=== PATIENT | female | born 1980 | race Caucasian/White ===

== ENCOUNTER → 2016-06-28 | Outpatient (CLI) | payer BC ==
[~2016-06-28] MED LIST: CLR10 PO; LTMOPS OP; PRENTAB26 PO; RANI150T3 PO; VALA500T60 PO
[2016-06-28 18:11] LABS: URINE APPEARANCE CLEAR (CLEAR); URINE BILIRUBIN NEG (NEG); URINE COLOR YELLOW; URINE NITRITE NEG (NEG); URINE SPECIFIC GRAVITY 1.007 (1.000-1.030); UROBILINOGEN NEG (NEG)
[2016-06-28 18:18] LABS: MANUAL MICROSCOPIC REQUIRED? NO; REVIEW REQ? NO
== END | disposition home or self-care (01) ==
LOC: C.LABSPEC 17:47
PROVIDERS: ATTEND Obstetrics & Gynecology
DX: O09.519 Supervision of elderly primigravida, unspecified trimester (principal); Z3A.00 Weeks of gestation of pregnancy not specified

== ENCOUNTER → 2016-07-05 | Outpatient (CLI) | payer BC | LOC: C.PAPS 09:07 | PROVIDERS: ATTEND Obstetrics & Gynecology | DX: O09.519 Supervision of elderly primigravida, unspecified trimester (principal) ==

== ENCOUNTER → 2016-07-05 | Outpatient (CLI) | payer BC ==
[2016-07-09 04:24] LABS: CHLAMYDIA TRACH RNA*** NOT DETECTED (NOT DETECTED); GC (NEIS GONORRHOEAE)RNA** NOT DETECTED (NOT DETECTED)
== END | disposition home or self-care (01) ==
LOC: C.LABSPEC 17:41
PROVIDERS: ATTEND Obstetrics & Gynecology
DX: O09.519 Supervision of elderly primigravida, unspecified trimester (principal)

== ENCOUNTER → 2016-07-05 | Outpatient (CLI) | payer BC ==
[2016-07-05 16:40] LABS: BASO % 0.3 %; BASO ABS # 0.02 K/uL (0-0.2); COMPLETE YES; EOS % 0.9 %; HEMATOCRIT 40.4 % (37-47); IG% 0.1 %; LYMPH % 26.1 %; LYMPH ABS # 2.05 K/uL (1.2-3.4); MEAN CELL VOLUME 94.6 fL (80-100); MEAN CORPUSCULAR HEMOGLOBIN 31.9 pg (25-34); MEAN CORPUSCULAR HGB CONC 33.7 g/dl (32-36); MEAN PLATELET VOLUME 9.2 fL (7.4-10.4); NEUT % 64.6 %; PLATELET COUNT 274 K/uL (130-400); RED BLOOD COUNT 4.27 M/uL (4.2-5.4); WHITE BLOOD COUNT 7.85 K/uL (4.8-10.8)
== END | disposition home or self-care (01) ==
LOC: C.LAB1850 15:05
PROVIDERS: ATTEND Obstetrics & Gynecology
DX: O09.519 Supervision of elderly primigravida, unspecified trimester (principal)

== ENCOUNTER → 2016-08-23 | Outpatient (CLI) | payer BC ==
[2016-08-23 17:10] LABS: GTGD 50 Grams
[2016-08-26 14:24] LABS: AFPTS GESTATIONAL AGE 15.3 WEEKS; AFPTS INSULIN DEP DIABETIC? NO; AFPTS MATERNAL WT 145 LBS; ALPHA-FETOPROTEIN RACE CAUCASIAN=W; HISTORY OF NTD NO; REPEAT SAMPLE? NO
== END | disposition home or self-care (01) ==
LOC: C.LAB1850 14:29
PROVIDERS: ATTEND Obstetrics & Gynecology
DX: O09.512 Supervision of elderly primigravida, second trimester (principal); Z3A.00 Weeks of gestation of pregnancy not specified

== ENCOUNTER → 2016-11-15 | Outpatient (CLI) | payer BC ==
[2016-11-15 15:52] LABS: HEMATOCRIT 34.2 % (37-47)
[2016-11-15 18:04] LABS: MANUAL MICROSCOPIC REQUIRED? NO; REVIEW REQ? NO; URINE APPEARANCE CLEAR (CLEAR); URINE BILIRUBIN NEG (NEG); URINE COLOR YELLOW; URINE EPITHELIAL CELL AUTO 20-30 /lpf (0-5); URINE NITRITE NEG (NEG); URINE SPECIFIC GRAVITY 1.017 (1.000-1.030); UROBILINOGEN NEG (NEG)
[2016-11-15 23:07] LABS: GTGD 50 Grams
== END | disposition home or self-care (01) ==
LOC: C.LAB1850 13:53
PROVIDERS: ATTEND Obstetrics & Gynecology
DX: O09.512 Supervision of elderly primigravida, second trimester (principal)

== ENCOUNTER 2016-11-28 21:02 | Outpatient (CLI) | payer BC ==
[~2016-11-28] VITALS: Ht 157.5 cm; Wt 75.5 kg
[2016-11-28 22:07] VITALS: Ht 157.5 cm; Wt 75.5 kg
[2016-11-28] MEDS ORDERED: CLR10 PO (22:10)
[2016-11-28] MEDS ORDERED: RANI150T3 PO (22:10)
[2016-11-28] MEDS ORDERED: PRENTAB26 PO (22:10)
[2016-11-28] MEDS ORDERED: LTMOPS OP (22:11)
[2016-11-28] MEDS ORDERED: VALA500T60 PO (22:12)
== END 2016-11-28 22:42 | disposition home or self-care (01) ==
LOC: C.OPB 21:02 → C.LD 21:02 → C.OPB 22:42
PROVIDERS: ATTEND Obstetrics & Gynecology
DX: O46.90 Antepartum hemorrhage, unspecified, unspecified trimester (principal); Z3A.00 Weeks of gestation of pregnancy not specified

== ENCOUNTER → 2017-01-17 | Outpatient (CLI) | payer BC | END | disposition home or self-care (01) | LOC: C.LABSPEC 13:53 | PROVIDERS: ATTEND Obstetrics & Gynecology | DX: O09.513 Supervision of elderly primigravida, third trimester (principal); Z3A.00 Weeks of gestation of pregnancy not specified ==

== ENCOUNTER 2017-02-21 15:44 | Inpatient (IN) | payer BC ==
[~2017-02-21] VITALS: Ht 157.5 cm; Wt 83.6 kg
[2017-02-25] MEDS ORDERED: OMEG10007 PO (19:36)
[2017-02-26] MEDS ORDERED: LACTATED RINGER'S 1000ML 1,000 ML IV PRN (08:33)
[2017-02-26] MEDS ORDERED: LACTATED RINGER'S 1000ML 500 ML IV PRN ×3 (08:33→22:13)
[2017-02-26 08:40] VITALS: Ht 157.5 cm; Wt 83.6 kg
[2017-02-26] MEDS ORDERED: OXYTOCIN 30 UNITS/500ML NSS IV PRN (08:45)
[2017-02-26 09:07] LABS: HEMATOCRIT 37.6 % (37-47); HEMOGLOBIN 12.6 g/dL (12.0-16.0); MEAN CELL VOLUME 89.7 fL (80-100); MEAN CORPUSCULAR HEMOGLOBIN 30.1 pg (25-34); MEAN CORPUSCULAR HGB CONC 33.5 g/dl (32-36); MEAN PLATELET VOLUME 9.6 fL (7.4-10.4); PLATELET COUNT 229 K/uL (130-400); RED CELL DISTRIBUTION WIDTH SD 48.4 fL (36.4-46.3); WHITE BLOOD COUNT 11.79 K/uL (4.8-10.8)
[2017-02-26] MEDS: LACTATED RINGER'S 1000ML 1,000 ML IV SCH ×2 (13:35→18:36)
[2017-02-26] MEDS ORDERED: BUPIVACAINE 0.25% 30 ML VIAL ONE (13:47)
[2017-02-26] MEDS ORDERED: FENTANYL CITRATE INJ 50 MCG/1 ML 2 ML VIAL ONE (13:47)
[2017-02-26] MEDS ORDERED: EpHEDrine SULFATE INJ 50 MG/ML AMP ONE (13:47)
[2017-02-26] MEDS ORDERED: FENTANYL 2MCG/ML ROPIV 1.25MG/ML 100ML BAG EPI ONE (13:47)
[2017-02-26] MEDS ORDERED: NALOXONE HCL INJ 1 MG in SODIUM CHLORIDE 0.9% 1000ML 1,000 ML IV PRN ×2 (14:25→22:13)
[2017-02-26] MEDS ORDERED: NALOXONE HCL INJ 0.4 MG/1 ML VIAL/CARP IV PRN (14:30)
[2017-02-26] MEDS ORDERED: DiphenhydrAMINE HCL 50 MG/ML VIAL IV PRN ×2 (14:30→22:15)
[2017-02-26] MEDS ORDERED: NALBUPHINE HCL INJ 10 MG/ML 1ML AMP IV PRN ×2 (14:30→22:15)
[2017-02-26] MEDS ORDERED: FENTANYL 2MCG/ML ROPIV 1.25MG/ML 100ML BAG EPI PRN (14:30)
[2017-02-26] MEDS ORDERED: EpHEDrine SULFATE INJ 50 MG/ML AMP IV PRN ×3 (14:30→22:15)
--- NOTE | 2017-02-26 20:53 | HISTORY & PHYSICAL EXAMINATION ---
DATE OF ADMISSION: 02/26/2017 HISTORY OF PRESENT ILLNESS: Magda is 42 weeks and she has been induced today. She received a cervical Beavers last night with Dr. Webber. At that stage, she was approximately 2-3 cm. Pitocin was started. She did receive an epidural IV therapy as well for Pitocin. The membranes were ruptured. The patient did reach 5 cm; however, she stayed at 5 cm for at least 5 hours despite adequate contractions via external toco. At that stage, I did recommend section and patient agreed. heart rate was category 1; however, cervix not only was 5 cm but it was -2 station. HISTORY: She is AMA, had an uncomplicated . She states SHE IS ALLERGIC TO PENICILLIN, but she is not sure what that allergy is. PAST MEDICAL HISTORY: She is healthy. PAST SURGICAL HISTORY: No major surgeries. SOCIAL HISTORY: Nonsmoker, nondrinker. FAMILY HISTORY: Noncontributory. REVIEW OF SYSTEMS: Negative. PHYSICAL EXAMINATION: VITAL SIGNS: Stable. She is afebrile. CHEST: Clear. CARDIOVASCULAR: Normal rate and rhythm. No audible murmur. ABDOMEN: Gravid. heart tones category 1. Cervix 5 cm, -2 station. IMPRESSION AND PLAN: I think she meets criteria for failure to progress. I did offer patient we can continue to monitor and use Pitocin. We did discuss the risks of this as well. Discussed what is involved in a including risks including bleeding; infection; injury to bowel, bladder, ureter, or vessels; deep vein thrombosis; pulmonary embolus. Discussed risks of infection in active labor with ruptured membranes. Given the option of labor or section at this stage, patient opts for section and I agree. We will make arrangements for this.
[2017-02-26] MEDS ORDERED: OXYTOCIN INJ 10 UNITS/ML VIAL ONE ×3 (20:55→21:40)
[2017-02-26] MEDS ORDERED: LIDOCAINE/EPINEPHRINE 2% 1:200,000 20 ML SDV ONE (20:55)
[2017-02-26] MEDS ORDERED: MoRPHine SULFATE PF 1 MG/ML 10 ML AMP/VIAL ONE (20:56)
[2017-02-26] MEDS ORDERED: MEPERIDINE HCL 25 MG/ML CARP IV PRN (21:00)
[2017-02-26] MEDS ORDERED: HYDROmorphone INJ 1 MG/ML SYR IV PRN (21:00)
[2017-02-26] MEDS ORDERED: ONDANSETRON INJ 2 MG/ML 2 ML VIAL IV PRN (21:00)
[2017-02-26] MEDS ORDERED: ATROPINE SULFATE 0.1 MG/ML 5ML SYR IV PRN (21:00)
[2017-02-26] MEDS ORDERED: GENTAMICIN INJ 160 MG in DEXTROSE 5% 100ML 100 ML IV ONE (21:00)
[2017-02-26] MEDS ORDERED: CLINDAMYCIN IV 900 MG in DEXTROSE 5% 100ML 100 ML IV ONE (21:00)
[2017-02-26] MEDS ORDERED: LABETALOL HCL IV 5 MG/ML 20ML IV PRN (21:00)
[2017-02-26] MEDS ORDERED: FENTANYL CITRATE INJ 50 MCG/1 ML 2 ML VIAL IV PRN (21:00)
[2017-02-26] MEDS: CITRIC ACID/SODIUM CITRATE 15 ML UDC PO ONE ×2 (21:01→21:22)
[2017-02-26] MEDS ORDERED: LACTATED RINGER'S 1000ML 1,000 ML IV SCH (21:58)
[2017-02-26] MEDS ORDERED: SENNA 8.6 MG TAB PO PRN (22:00)
[2017-02-26] MEDS ORDERED: BENZOCAINE 20% AER SPR 82.5 GM CAN EXT PRN (22:00)
[2017-02-26] MEDS ORDERED: MAGNESIUM HYDROXIDE SUSP 30 ML UDC PO PRN (22:00)
[2017-02-26] MEDS ORDERED: LANOLIN OINT EXT PRN (22:00)
[2017-02-26] MEDS ORDERED: HYDROCORTISONE ACETATE 25 MG SUPP PR PRN (22:00)
[2017-02-26] MEDS ORDERED: PROMETHAZINE HCL INJ 25 MG in SODIUM CHLORIDE 0.9% 50ML 50 ML IV PRN (22:00)
[2017-02-26] MEDS ORDERED: SUPERCREAM 0.870 % 15GM JAR EXT PRN (22:00)
--- NOTE | 2017-02-26 22:03 | [facility] Post Operative Brief Note ---
Immediate Operative Summary Operative Date Feb 26, 2017. Pre-Operative Diagnosis Failure of descent Post-Operative Diagnosis Same Procedure(s) Performed Primary low transverse Caesarean Section for the delivery of a viable male child at 2128. Surgeon Customer Service Professional Surgeon(s) . Estimated Blood Loss 600 ml Findings normal anatomy Specimens Placenta - hold Cord Blood Cord Gases Drains Beavers Anesthesia Epidural Complication(s) None Disposition L&D
[2017-02-26] MEDS ORDERED: NALOXONE HCL INJ 0.08 MG in SYRINGE 1.8 ML IV PRN (22:13)
[2017-02-26] MEDS ORDERED: SODIUM CHLORIDE 0.9% 1000ML 1,000 ML IV PRN (22:13)
[2017-02-26] MEDS ORDERED: NALOXONE HCL 0.4 MG/1 ML VIAL/CARP IV PRN (22:15)
[2017-02-26] MEDS ORDERED: MoRPHine SULFATE PF 1 MG/ML 10 ML AMP/VIAL EPI PRN (22:15)
[2017-02-26] MEDS ORDERED: NO NARCOTICS OR SEDATIVES SCH (22:15)
[2017-02-26] MEDS ORDERED: DC INTRASPINAL MORPHINE SCH (22:15)
[2017-02-26] MEDS: OXYTOCIN INJ 20 UNITS in LACTATED RINGER'S 1000ML 1,000 ML IV SCH (22:27)
--- NOTE | 2017-02-26 22:46 | Anesthesiology Progress Note ---
Anesthesia Post Op Note Date & Time Feb 26, 2017 at 22:46 Notes Mental Status: alert / awake / arousable, participated in evaluation Pt Amnestic to Procedure: Yes Nausea / Vomiting: adequately controlled Pain: adequately controlled Airway Patency, RR, SpO2: stable & adequate BP & HR: stable & adequate Hydration State: stable & adequate Neuraxial Anesthesia: was administered, sensory block is resolving Anesthetic Complications: no major complications apparent
--- NOTE | 2017-02-26 22:46 | Anesthesia Procedure Note ---
Anesthesia Epidural Removal Nt Date & Time Feb 26, 2017 at 22:45 Notes Mental Status: alert / awake / arousable, participated in evaluation Nausea / Vomiting: adequately controlled Pain: adequately controlled Airway Patency, RR, SpO2: stable & adequate BP & HR: stable & adequate Hydration State: stable & adequate Neuraxial Anesthesia: was administered Anesthetic Complications: no major complications apparent, pt satisfied with anesthetic care Epidural: removed without complications, with tip intact
[2017-02-27] VITALS (14 sets, daily range): BP systolic 119–140; BP diastolic 71–88; PULSE 70–84; TEMP 36.6–36.8; O2SAT 96–99
--- NOTE | 2017-02-27 02:15 | OPERATIVE REPORT ---
DATE OF OPERATION: 02/26/2017 PREOPERATIVE DIAGNOSES: Failure of descent and failure to progress in labor. POSTOPERATIVE DIAGNOSES: Same. PROCEDURE: Low segment transverse section. SURGEON: Brian Jarvis MD ESTIMATED BLOOD LOSS: 600 mL FINDINGS: Normal anatomy. SPECIMENS: Cord gases, cord blood. DRAINS: Beavers catheter. ANESTHESIA: Epidural. COMPLICATIONS: None. DISPOSITION: Labor and delivery. DESCRIPTION OF PROCEDURE: Magda was given an increase in her epidural. Beavers catheter was placed by nursing. The patient was positioned in supine position with a leftward tilt. Skin area was tested with pickups with teeth. The patient received clindamycin and gentamicin preoperatively. Scalpel was used to make a Pfannenstiel incision dissecting down to subcutaneous fat through the fascia in the midline. Fascia was dissected laterally with curved Mayos and then fascia was released superiorly and inferiorly from the rectus muscles with curved Mayos. Rectus muscle was split. Peritoneal cavity was entered in the superior location, opening enlarged to allow exposure. Bladder retractor placed. Metzenbaums used to dissect away the bladder flap. Scalpel used to make a low transverse incision into the uterus. Hemostat was used to make entry and then, incision bluntly extended in the usual fashion. Baby was in a transverse position. Baby's head was flexed. It was not well descended in the pelvis. Baby head was then delivered by pressure on the abdomen. Mouth and then nares suctioned, clear fluid, and then baby delivered by gentle traction. Live vigorous . Cord clamped and cut. Cord gases obtained. Cord blood obtained. IV Pitocin started. Placenta removed and then we exteriorized the uterus. We ensured all placenta removed with a moist lap. Uterus closed in the usual fashion, a running 0 Monocryl locked and a second reinforcing 0 Monocryl layer nonlocked. After generous irrigation and suction of the cul-de-sac and bladder flap regions, uterus was placed back in the peritoneal cavity and hemostasis was excellent. Rectus muscles were inspected for bleeders and there were none. Fascia closed with 0 Vicryl. It should be noted, we did reapproximate the rectus muscles with 0 Monocryl. Subcutaneous fat irrigated and closed with 3-0 Vicryl and skin closed with 4-0 subcuticular Monocryl and Steri-Strips. Urine was clear at the end of the procedure. Sponge and instrument counts correct. I attest to the content of the Intraoperative Record and any orders documented therein. Any exception s are noted below.
[2017-02-27] MEDS: OXYTOCIN INJ 20 UNITS in LACTATED RINGER'S 1000ML 1,000 ML IV SCH (06:14)
[2017-02-27] MEDS ORDERED: KETOROLAC TROMETHAMINE 30 MG/ML VIAL ONE (06:35)
[2017-02-27] MEDS ORDERED: KETOROLAC TROMETHAMINE 30 MG/ML VIAL IV. PRN ×2 (06:45→15:30)
[2017-02-27] MEDS ORDERED: NURSING DECISION MEDICATION ORDER SCH (06:45)
[2017-02-27 06:54] LABS: HEMATOCRIT 29.5 % (37-47); HEMOGLOBIN 9.9 g/dL (12.0-16.0); MEAN CELL VOLUME 89.4 fL (80-100); MEAN CORPUSCULAR HGB CONC 33.6 g/dl (32-36); MEAN PLATELET VOLUME 9.4 fL (7.4-10.4); PLATELET COUNT 196 K/uL (130-400); RED CELL DISTRIBUTION WIDTH SD 48.2 fL (36.4-46.3)
[2017-02-27 07:14] LABS: BASO % 0.1 %; BASO ABS # 0.02 K/uL (0-0.2); EOS % 0.2 %; EOS ABS # 0.03 K/uL (0-0.5); IG# 0.04 K/uL (0.00-0.02); LYMPH % 15.6 %; LYMPH ABS # 2.55 K/uL (1.2-3.4); MONO ABS # 0.81 K/uL (0.11-0.59); NEUT % 78.9 %; NEUT ABS # 12.85 K/uL (1.4-6.5)
[2017-02-27] MEDS: PRENATAL VITAMIN TAB PO SCH (07:52)
[2017-02-27] MEDS: SIMETHICONE 80 MG CHEW PO SCH ×4 (07:52→19:42)
[2017-02-27] MEDS: DOCUSATE SODIUM 100 MG CAP PO SCH ×2 (07:52→19:42)
--- NOTE | 2017-02-27 08:11 | Progress Note ---
Subjective Feb 27, 2017. Subjective conversation w/ patient, chart review, lab review Voiding: cardona catheter in place Passing Gas: No Lochia: Moderate Feeding Type: Breast Feeding Objective Vital Signs Date Time Temp Pulse Resp B/P (MAP) Pulse Ox O2 Delivery O2 Flow Rate FiO2 02/27/17 04:00 36.6 70 18 125/71 (89) 99 Room Air 02/27/17 04:00 18 99 02/27/17 00:30 18 98 02/27/17 00:30 36.8 77 18 140/88 (105) 97 Room Air 02/27/17 00:30 36.8 77 18 140/88 (105) 97 Room Air 02/27/17 00:30 97 Room Air Physical Exam General Appearance: WELL-APPEARING Respiratory/Chest: lungs clear Cardiovascular: regular rate, rhythm Abdomen: non tender Fundus: Firm Incision Description: Clean, Dry & Intact Extremities: no calf tenderness Laboratory Results Last 24 Hours Test 02/26/17 08:49 02/27/17 06:26 White Blood Count 11.79 K/uL 16.30 K/uL Red Blood Count 4.19 M/uL 3.30 M/uL Hemoglobin 12.6 g/dL 9.9 g/dL Hematocrit 37.6 % 29.5 % Mean Corpuscular Volume 89.7 fL 89.4 fL Mean Corpuscular Hemoglobin 30.1 pg 30.0 pg Mean Corpuscular Hemoglobin Concent 33.5 g/dl 33.6 g/dl RDW Standard Deviation 48.4 fL 48.2 fL RDW Coefficient of Variation 15.0 % 15.0 % Platelet Count 229 K/uL 196 K/uL Mean Platelet Volume 9.6 fL 9.4 fL Neutrophils (%) (Auto) 78.9 % Lymphocytes (%) (Auto) 15.6 % Monocytes (%) (Auto) 5.0 % Eosinophils (%) (Auto) 0.2 % Basophils (%) (Auto) 0.1 % Neutrophils # (Auto) 12.85 K/uL Lymphocytes # (Auto) 2.55 K/uL Monocytes # (Auto) 0.81 K/uL Eosinophils # (Auto) 0.03 K/uL Basophils # (Auto) 0.02 K/uL Immature Granulocyte % (Auto) 0.2 % Immature Granulocyte # (Auto) 0.04 K/uL Assessment and Plan Post-Op Day#: 1 Continue Routine Care: Patient doing well post Cardona catheter to come out later will encourage ambulation encourage breast-feeding
[2017-02-27] MEDS ORDERED: MEPERIDINE HCL 50 MG/ML CARP IV PRN ×2 (15:30)
[2017-02-27] MEDS ORDERED: OXYCODONE/ACETAMINOPHEN 5-325 TAB PO PRN (15:30)
[2017-02-27] MEDS ORDERED: ONDANSETRON INJ 2 MG/ML 2 ML VIAL IV PRN (15:30)
[2017-02-27] MEDS ORDERED: ZOLPIDEM TARTRATE 5 MG TAB PO PRN (15:30)
[2017-02-27] MEDS ORDERED: DiphenhydrAMINE HCL 50 MG/ML VIAL IV PRN (15:30)
--- NOTE | 2017-02-27 17:28 | NUR ---
At 1630 met with parents and to offer assistance regarding . During my visit, was initially sleep and then began to show feeding cues. Mother suggested football hold, as she had earlier success with this position she stated. Patient also stated she wanted to stay OOB and try breast feeding in the chair. was positioned in football hold and suckled, formed a nipple teet (mom has flat nipples that pravin with stim). Mom was successful in self expressing cholostrum into her infant's mouth. This nurse reviewed feeding positions, the latching process, mouth seal, infant's state of baby, alignment of 's body and ideal sucking rhythm. Infant was sleepy and appeared to want to suck on his left arm. Mother then decided after approx 10 min. to get back in bed and assisted with football hold on the left side. Both sides infant was sleepy and suckled for approx 5 min. per breast. Next mom held infant skin to skin.
[2017-02-27] MEDS: IBUPROFEN 600 MG TAB PO PRN ×2 (19:42→23:13)
[2017-02-27] MEDS: OXYCODONE/ACETAMINOPHEN 5-325 TAB PO PRN ×2 (19:42→23:14)
[2017-02-27] MEDS ORDERED: BISACODYL 5 MG TABEC PO ONE (22:00)
[2017-02-28 00:01] VITALS: BP 110/70; PULSE 77; TEMP 36.7; O2SAT 98
[2017-02-28] MEDS: IBUPROFEN 600 MG TAB PO PRN ×4 (06:40→22:30)
[2017-02-28] MEDS: OXYCODONE/ACETAMINOPHEN 5-325 TAB PO PRN ×4 (06:41→22:30)
--- NOTE | 2017-02-28 06:54 | Progress Note ---
Subjective Feb 28, 2017. Subjective conversation w/ patient, physical exam Ambulation: ambulating normally Voiding: no voiding problems Passing Gas: Yes Diet Tolerance: Regular Diet Lochia: Small Feeding Type: Breast Feeding Pain: using pain meds successfully. Objective Vital Signs Date Time Temp Pulse Resp B/P (MAP) Pulse Ox O2 Delivery O2 Flow Rate FiO2 02/28/17 00:01 36.7 77 16 110/70 02/28/17 00:01 98 Room Air 02/27/17 19:30 36.6 83 20 120/75 02/27/17 15:30 98 Room Air 02/27/17 15:30 20 98 02/27/17 15:20 36.7 84 18 122/79 02/27/17 14:00 18 97 02/27/17 13:00 18 98 02/27/17 12:00 18 98 02/27/17 11:40 36.6 73 18 119/76 02/27/17 11:00 18 96 02/27/17 10:00 18 97 02/27/17 09:00 18 98 02/27/17 08:00 98 Room Air 02/27/17 08:00 18 98 02/27/17 07:00 18 97 Physical Exam General Appearance: WELL-APPEARING, WD/WN, NO APPARENT DISTRESS Respiratory/Chest: lungs clear Cardiovascular: regular rate, rhythm Abdomen: non tender, soft Fundus: Firm, Relation to Umbilicus (2 down) Incision Description: Clean, Dry & Intact (with steris) Extremities: non-tender Laboratory Results Last 24 Hours Test 02/28/17 06:48 Assessment and Plan Post-Op Day#: 2 Continue Routine Care: stable, routine care. pt requesting possible discharge home later today. instructions reviewed and rec f/u 6wks. rec use of scds for entire hospital stay. prescriptions readied.
[2017-02-28] MEDS ORDERED: MTR600X PO (06:55)
[2017-02-28] MEDS ORDERED: OXYC-57 PO (06:55)
--- NOTE | 2017-02-28 06:56 | Discharge Instructions ---
Discharge Instructions Date of Service Feb 28, 2017. Admission Reason for Admission: Induction Discharge Discharge Diagnosis / Problem: after delivery Discharge Goals Goal(s): Routine recovery after Medications Continue Dispensed Medications: supercream, dermaplast, tucks, lansinoh Activity Recommendations Activity Limitations: as noted below . Instructions / Follow-Up Instructions / Follow-Up ACTIVITY RECOMMENDATIONS: * Gradual return to full activity over the next 2-3 weeks. * No lifting - nothing heavier than baby over the next 2-3 weeks. * Do not engage in vigorous exercise, sexual activity or sports until cleared by your physician. * Do not drive or operate any motorized equipment until cleared by your physician. * You may shower/bathe daily. MEDICATIONS: For discomfort or pain, you may use Acetaminophen (Tylenol), Ibuprofen (Advil), or Naproxen (Aleve) following the package directions. For constipation you may use Colace following the package directions. BREAST CARE: If you are not breast feeding: * Wear a supportive bra 24 hours a day for one to two weeks. * Avoid stimulating your breasts and nipples as much as possible during the first few weeks after delivery. * When taking a shower, have the warm water hit your back, not breasts. * When your breasts feel full, apply ice packs. Usually three to four times a day helps ease the discomfort. * Take a mild pain medication (Tylenol / Motrin) when you are uncomfortable. If breast feeding: * Use breast milk to lubricate nipples. Lansinoh cream may be used for sore nipples. You do not need to remove cream prior to breast feeding. If using a different brand of cream, check the label for directions regarding removal of cream prior to nursing. * Wear a supportive bra. * If having problems with breasts or breast feeding, call a business management consultant or your health care provider. SPECIAL CARE INSTRUCTIONS: When you are discharged from the hospital, it is important for you to follow the instructions listed below: * During the first week at home, you should be able to care for yourself and your baby. In addition, the usual light household activities are encouraged. * Limit your activities to the way you feel. Do not try to clean the house or move furniture. Be sensible. * If you actively engage in sports and have done so up until the time of your delivery, you may resume these activities as soon as you feel able. This may take up to one month or even longer. Use good judgment. * Continue to take your vitamins for at least six weeks after the of your baby. * Your diet need not be limited unless you were on a special diet before your delivery. Breast-feeding mothers need around 2500 calories per day and at least 64-80 ounces of fluid per day (8 to 10 glasses). * You should eat foods from the four major food groups. Crash diets or fad diets are to be avoided. Eating lean meats, fresh fruits and vegetables, low-fat dairy products, high fiber foods and a regular exercise program, will help you get back to your pre- weight without putting your health at risk. * Constipation is sometimes a problem after delivery. Take a mild laxative as needed. If breast feeding, Milk of Magnesia is acceptable to use. You may use a suppository or Fleets enema. * A daily shower or tub bath is suggested. Wash incision daily with warm soapy water and pat dry. It doesn't need to be covered unless drainage is present. * A bloody vaginal discharge will usually continue until around four weeks . A small amount of bleeding may continue for as long as six weeks. Vaginal discharge changes from the bright red bleeding after delivery to pink then brownish and finally yellowish-pink before becoming white and disappearing. * Bleeding may increase with activity. Your first period may come in 4-8 weeks. If you are breast feeding, your period may be delayed even longer. * [place] (sex) can begin whenever both you and your partner feel comfortable and do not have any form of genital infection. It is recommended that you wait at least six weeks for internal and external healing to occur. If you have questions, please talk to your health care practitioner. A condom should be used to prevent infection and . * Foreplay, gentle intercourse and lubrication is very important the first several times to prevent pain. A water-based lubricant such as K-Y jelly or Astroglide may be used. * If you have RH negative blood and your baby is RH positive, you will receive RHOGAM by injection prior to discharge. The nurse will give you a card to keep with you that has the date and place that you received RHOGAM after delivery. * During your care, you had a Rubella screen done to check for the presence of rubella antibodies in your blood. If your test was negative, you will receive a Rubella vaccine prior to discharge. This vaccine may cause a fever, soreness at the injection site and flu-like symptoms. If these symptoms persist, notify your health care practitioner. is not advised for one month after a Rubella vaccine. * Verbalizes understanding of car seat law as reviewed with patient nursing. * Car Seat hand-out given and reviewed with patient by nursing. * Shaken baby information reviewed with patient by nursing. Call you doctor if: * Heavy bleeding (saturating several pads an hour) or passing clots the size of your fist. * A fever >101 degrees F (38.3 degrees C) on two occasions four hours apart and /or chills. * Unusual pain in the pelvic or vaginal areas. * Call the doctor for any increased redness, drainage or swelling around the incision and any pain unrelieved by prescribed pain medication. * "Baby Blues" lasting longer than two weeks. If you have any questions or concerns, call your health care practitioner at . FOLLOW UP VISIT: * Please call the office at to schedule a 6 week examination. It is important you keep this appointment. It is important for you to make arrangements for either yearly or twice yearly check-ups thereafter. Current Hospital Diet Patient's current hospital diet: Regular Diet Discharge Diet Recommended Diet: Regular Diet Procedures Procedures Performed: Primary low transverse Caesarean Section for the delivery of a viable male child at 2128. Pending Studies Studies pending at discharge: no Medical Emergencies . Who to Call and When: Medical Emergencies: If at any time you feel your situation is an emergency, please call [phone] immediately. . Non-Emergent Contact Non-Emergency issues call your: Silk Screener . . "Provider Documentation" section prepared by Michelle Blanchard. . VTE Core Measure Inpt VTE Proph given/why not?: [facility] [place] [place] Drug Monitoring Program Search Results: patient reviewed within database, no issues identified
[2017-02-28 07:11] LABS: HEMATOCRIT 28.7 % (37-47); HEMOGLOBIN 9.5 g/dL (12.0-16.0)
[2017-02-28 07:30] VITALS: BP 131/85; PULSE 78; TEMP 36.6; O2SAT 96
[2017-02-28] MEDS: DOCUSATE SODIUM 100 MG CAP PO SCH ×2 (07:35→20:00)
[2017-02-28] MEDS: SIMETHICONE 80 MG CHEW PO SCH ×4 (07:35→20:00)
[2017-02-28] MEDS: PRENATAL VITAMIN TAB PO SCH (07:39)
[2017-02-28 16:00] VITALS: BP 128/83; PULSE 81; TEMP 36.6
[2017-02-28] MEDS ORDERED: BISACODYL 10 MG SUPP PR PRN (22:45)
[2017-02-28 23:21] VITALS: BP 137/87; TEMP 36.6
[2017-03-01] MEDS: OXYCODONE/ACETAMINOPHEN 5-325 TAB PO PRN ×3 (01:40→12:30)
[2017-03-01 07:25] VITALS: BP 142/89; PULSE 72; TEMP 36.7; O2SAT 98
[2017-03-01] MEDS: SIMETHICONE 80 MG CHEW PO SCH ×2 (07:47→12:29)
[2017-03-01] MEDS: DOCUSATE SODIUM 100 MG CAP PO SCH (07:47)
[2017-03-01] MEDS: IBUPROFEN 600 MG TAB PO PRN ×2 (07:48→12:29)
[2017-03-01] MEDS: PRENATAL VITAMIN TAB PO SCH (07:49)
--- NOTE | 2017-03-01 07:59 | Progress Note ---
Subjective Mar 01, 2017. Subjective conversation w/ patient, physical exam, lab review Ambulation: ambulating normally Voiding: no voiding problems Passing Gas: Yes Diet Tolerance: Regular Diet Lochia: Small Feeding Type: Breast Feeding Pain: controlled Comment: Baby is having feeding problems and requires further monitoring. Objective Vital Signs Date Time Temp Pulse Resp B/P (MAP) Pulse Ox O2 Delivery O2 Flow Rate FiO2 02/28/17 23:24 Room Air 02/28/17 23:21 36.6 18 137/87 (104) Room Air 02/28/17 16:00 36.6 81 18 128/83 (98) Room Air 02/28/17 15:30 Room Air Physical Exam General Appearance: WELL-APPEARING, WD/WN, NO APPARENT DISTRESS Abdomen: non tender, soft Fundus: Firm, Non-Tender, Relation to Umbilicus (at u) Incision Description: Clean, Dry & Intact Extremities: non-tender, normal inspection, no pedal edema Assessment and Plan Post-, Post-Op Day#: 3 Continue Routine Care: Doing well. Will again prepare d/c in hopes baby will go home. Patient has 96 hours of covered hospitalization if needed to stay over again tonight. d/c instructions given.
--- NOTE | 2017-03-01 08:30 | NUR ---
Encouraged pt to pump after breast feeding baby to increase stimulation to breasts. Mother pumped after feeding baby and didn't get any breast milk.
[2017-03-01 13:40] VITALS: BP_DIAS 89; PULSE 72; TEMP 36.7
--- NOTE | 2017-03-01 13:40 | NUR ---
Discharged to home with and . Instructions provided. Verbalized understanding. To front lobby via w/c with nurse.
--- NOTE | 2017-03-04 09:07 | DISCHARGE SUMMARY ---
Magda had a section on 02/26/2017. Operative note is in the system. The procedure was uncomplicated. COURSE IN HOSPITAL: The patient was discharged home on 03/01/2017 which was day #3. SUBJECTIVE: At that time she was ambulating normal, passing flatus and no extremity pain. She was . Pain was well controlled and small amount of bleeding. PHYSICAL EXAMINATION: VITAL SIGNS: Stable. She is afebrile. ABDOMEN: Nontender and soft. Incision clean, dry and intact. EXTREMITY EXAMINATION: Nontender. IMPRESSION AND PLAN: Postop day #3, discharged home on Percocet and Motrin and discharge instructions reviewed.
== END 2017-03-01 13:40 | disposition home or self-care (01) | DRG 766 ==
LOC: EEVIPCON 02-26 08:00 → C.LD 02-26 08:00 → C.OBG 02-27 00:26
PROVIDERS: ADMIT Obstetrics & Gynecology; ATTEND Obstetrics & Gynecology
PROC: 3E033VJ Introduction of Other Hormone into Peripheral Vein, Percutaneous Approach (ICD-10-PCS; 2017-02-26)
PROC: 10D00Z1 Extraction of Products of Conception, Low, Open Approach (ICD-10-PCS; principal; 2017-02-26 21:05)
DX: O48.0 Post-term pregnancy (principal); O32.4XX0 Maternal care for high head at term, not applicable or unspecified; O62.0 Primary inadequate contractions; Z3A.42 42 weeks gestation of pregnancy; Z37.0 Single live birth; Z88.0 Allergy status to penicillin

== ENCOUNTER 2017-02-23 09:15 | Outpatient (CLI) | payer BC ==
[2017-02-28] MEDS ORDERED: OXYC-57 PO (06:55)
[2017-02-28] MEDS ORDERED: MTR600X PO (06:55)
--- NOTE | 2017-03-05 10:44 | EDITING REQUIRED CODING QUERY ---
DIAGNOSIS NEEDED To promote full compliance with coding requirements relating to patient care, physician participation is requested in all cases of deputy sheriff generalist uncertainty. Please assist us with the question(s) below: Coding Question: The patient received care in labor and delivery on 02/23/17 as noted within the record. Please document the diagnosis that is being addressed by the medication/treatment. Provider Response: DIAGNOSIS: Postdates pregnanacy WEEKS OF GESTATION: 41 weeks Thank you for your assistance, Ginger Lopez - Engraver Apprentice Decorative
== END 2017-02-23 10:15 | disposition home or self-care (01) ==
LOC: C.OPB 09:15 → C.LD 09:16 → C.OPB 10:15
PROVIDERS: ATTEND Obstetrics & Gynecology
DX: O48.0 Post-term pregnancy (principal); Z3A.41 41 weeks gestation of pregnancy

== ENCOUNTER 2017-02-25 19:11 | Outpatient (CLI) | payer BC ==
[~2017-02-25] VITALS: Ht 157.5 cm; Wt 83.5 kg
[2017-02-25] MEDS ORDERED: OMEG10007 PO (19:36)
[2017-02-25 19:37] VITALS: Ht 157.5 cm; Wt 83.5 kg
== END 2017-02-25 20:40 | disposition home or self-care (01) ==
LOC: C.OPB 19:11 → C.LD 19:12 → C.OPB 20:40
PROVIDERS: ATTEND Obstetrics & Gynecology
DX: O48.0 Post-term pregnancy (principal); O09.513 Supervision of elderly primigravida, third trimester; Z3A.41 41 weeks gestation of pregnancy

== ENCOUNTER → 2017-07-01 | Outpatient (CLI) | payer BC ==
[~2017-07-01] MED LIST changes: +MTR600X PO; +OMEG10007 PO; +OXYC-57 PO
== END | disposition home or self-care (01) ==
LOC: C.LABSPEC 15:43
PROVIDERS: ATTEND Physician Assistant
DX: Z30.430 Encounter for insertion of intrauterine contraceptive device (principal)